=== PATIENT | male | born 1945 | race Caucasian/White ===

== ENCOUNTER 2017-07-10 07:24 | Observation (INO) | payer MEDICARE, BC ==
[~2017-07-10] VITALS: Ht 190.5 cm; Wt 93.4 kg
[~2017-07-10 07:24] MED LIST: AMOXICILLIN500 MG PO; ASPIRIN EC81 MG PO; LIPITOR10 M1 PO; LISINOPRIL20 MG PO; METOPROL TAR25 MG PO
--- NOTE | 2017-07-10 07:32 | NUR ---
AMBULATORY TO ER ROOM 13, TO B ED
[2017-07-10 07:52] LABS: HEMATOCRIT 42.4 % (39.0-50.0); HEMOGLOBIN 14.4 g/dl (14.0-18.0); IMMATURE GRANULOCYTES 0.2 % (0.0-1.0); MEAN CELL VOLUME 90.6 fL CALC (80.0-100.0); MEAN CORPUSCULAR HGB 30.8 pG CALC (26.0-32.0); NEUT# 2.49 thou/uL (1.82-7.42); RED BLOOD COUNT 4.68 mill/uL (4.70-6.10); RED CELL DISTRI WIDTH 12.5 % (11.5-15.5)
--- NOTE | 2017-07-10 08:06 | NUR ---
PT CALM AND QUIET, DENIES PAIN OR SOB.
[2017-07-10 08:08] LABS: ANION GAP 18 (6-22 (CALC)); BUN 16 mg/dL (8-23); BUN/CREATININE RATIO 19 (12-20 (CALC)); CARBON DIOXIDE 26 mmol/l (22-30); CHLORIDE 103 mmol/l (95-108); CREATININE 0.8 mg/dL (0.7-1.3); GFR > 60 ML/MIN (>=60 (CALC)); GFR FOR AFR.AMER. > 60 ML/MIN (>=60 (CALC)); POTASSIUM 3.8 mmol/l (3.5-5.1); SODIUM 143 mmol/l (137-146)
[2017-07-10] MEDS ORDERED: GLUCOPHAGE500 MG PO (08:13)
--- NOTE | 2017-07-10 08:19 | NUR ---
ER AWARE OF BP'S. NO NEW ORDERS RECIEVED
--- NOTE | 2017-07-10 09:17 | NUR ---
ATTEMPTED REPORT TO CLAUDY RAMOS, UNABLE TO TAKE AT THIS TIME, SHE IS TO CALL BACK
[2017-07-10 09:31] LABS: CHOLESTEROL HDL RATIO 2.1 (<4.4 (CALC)); MAGNESIUM 2.3 mg/dL (1.6-2.3)
--- NOTE | 2017-07-10 09:39 | NUR ---
Admission Note Report Given to: CLAUDY RAMOS Transported by: X Wheelchair Stretcher Transported with: X Nurse Transporter Patent IV O2 X School Lunch Manager
--- NOTE | 2017-07-10 09:56 | NUR ---
PT ARRIVED VIA STRETCHER ACCOMAPNIED BY STAFF AND FAMILY IV AND TELE MONITOR IN PLACE.
[2017-07-10 10:05] VITALS: BP 156/76
--- NOTE | 2017-07-10 10:45 | NUR ---
ASSESSMENT IS COMPLETED: IV SITE IS FREE FROM REDNESS OR EDEMA. HR IS REG, AT THIS TIME. ABD IS SOFT WITH ACTIVE BS. TELE MONITOR IN PLACE. BREATH SOUNDS ARE CLEAR, CONTINUE TO OBSERVE AND MONITOR.
--- NOTE | 2017-07-10 12:15 | NUR ---
PT HAS BEEN RELAXING IN BED WITH FAMILY IN THE ROOM. IV SITE IS FREE FROM REDNESS OR EDEMA.
[2017-07-10 15:12] VITALS: BP 110/58
--- NOTE | 2017-07-10 17:00 | NUR ---
PT HAS BEEN AMBULATING IN THE ROOM. IV SITE IS FREE FROM REDNESS OR EDEMA. PT TOOK HOME MEDICATIONS WAS COUNCILED ON TAKING HOME MEDS. TO PLEASE NOT DO THIS FOR FEAR OF OVERDOSING. PT VERBALIZED UNDERSTANDING.
[2017-07-10 19:36] VITALS: BP 124/65
--- NOTE | 2017-07-10 19:40 | NUR ---
REPORT RECIEVED; PT DENIES ANY PAIN OR DISCOMFORT. PT ENCOURAGED TO CALL FOR ASSISTANCE. SAFETY PRECAUTIONS REINFORCED. TELE IN PLACE. FREQUENT ROUNDS MADE. CALL LIGHT WITHIN REACH.
--- NOTE | 2017-07-10 21:40 | NUR ---
PT SITTING ON SIDE OF BED. PT DENIES PAIN OR DISCOMFORT. RESP EVEN AND UNLABORED; NO DISCOMFORT NOTED. TELE IN PLACE. ABD SOFT; ACTIVE BOWEL SOUNDS NOTED. PEDAL PULSES PALPATED BILAT. IV LAC PATENT; FLUSHED WITHOUT DIFFICULTY. SAFETY PRECAUTIONS REINFORCED. CALL LIGHT WITHIN REACH.
--- NOTE | 2017-07-11 00:20 | NUR ---
RESP EVEN AND UNLABORED. TELE IN PLACE. CALL LIGHT WITHIN REACH.
[2017-07-11 00:29] VITALS: BP 149/81
[2017-07-11 04:11] VITALS: BP 127/74
--- NOTE | 2017-07-11 04:15 | NUR ---
RESP EVEN AND UNLABORED; NO DISCOMFORT NOTED. TELE IN PLACE. ASSESSMENT UNCHANGED. CALL LIGHT WITHIN REACH.
[2017-07-11 05:42] LABS: ANION GAP 16 (6-22 (CALC)); BUN 18 mg/dL (8-23); BUN/CREATININE RATIO 21 (12-20 (CALC)); CARBON DIOXIDE 27 mmol/l (22-30); CHLORIDE 104 mmol/l (95-108); CREATININE 0.9 mg/dL (0.7-1.3); GFR > 60 ML/MIN (>=60 (CALC)); GFR FOR AFR.AMER. > 60 ML/MIN (>=60 (CALC)); POTASSIUM 4.3 mmol/l (3.5-5.1); SODIUM 143 mmol/l (137-146)
[2017-07-11 05:43] LABS: HEMATOCRIT 40.3 % (39.0-50.0); HEMOGLOBIN 13.7 g/dl (14.0-18.0); MEAN CELL VOLUME 91.2 fL CALC (80.0-100.0); RED BLOOD COUNT 4.42 mill/uL (4.70-6.10); RED CELL DISTRI WIDTH 12.5 % (11.5-15.5)
--- NOTE | 2017-07-11 07:30 | NUR ---
BEDSIDE REPORT RECEIVED FROM HOLLY HUERTA. PT SITTING IN CHAIR AT BEDSIDE. DENIES PAIN, REPORTING OF CONCERNS ENCOURAGED. PLAN OF CARE DISCUSSED. CALL LIGHT REVIEWED AND IN REACH. PT STATES UNDERSTANDING.
[2017-07-11 08:10] VITALS: BP 108/65
--- NOTE | 2017-07-11 09:30 | NUR ---
PT REPORTS PALPITATIONS, STATES THEY HAVE BEEN COMING AND GOING SINCE PRIOR TO ADMISSION. NO PAIN. NO OTHER SYMPTOMS RELATED TO PALPITAIONS. NO SOB.
[2017-07-11 11:11] VITALS: BP 117/68
--- NOTE | 2017-07-11 13:23 | NUR ---
DR. KENNEY IN TO SEE PT.
--- NOTE | 2017-07-11 14:56 | NUR ---
Discharge instructions given. Patient verbalizes understanding of same. Discharged in stable condition via Ambulatory to Home with spouse. All belongings sent with pt.
== END 2017-07-11 14:48 | disposition home or self-care (01) ==
LOC: ED 07:24 → ED-I 08:20 → ED 08:30 → MS2 08:31
PROVIDERS: Family Medicine; Nurse Practitioner Family; ADMIT Internal Medicine; ATTEND Internal Medicine
DX: I49.1 Atrial premature depolarization (principal); I48.0 Paroxysmal atrial fibrillation; I10 Essential (primary) hypertension; I25.10 Atherosclerotic heart disease of native coronary artery without angina pectoris; E78.5 Hyperlipidemia, unspecified; K29.70 Gastritis, unspecified, without bleeding; K44.9 Diaphragmatic hernia without obstruction or gangrene; Z85.46 Personal history of malignant neoplasm of prostate; Z82.49 Family history of ischemic heart disease and other diseases of the circulatory system

== ENCOUNTER → 2018-01-15 | Outpatient (REF) | payer MEDICARE, BC ==
[~2018-01-15] MED LIST changes: +GLUCOPHAGE500 MG PO
== END | disposition home or self-care (01) ==
LOC: CT 08:28
PROVIDERS: ATTEND Neurological Surgery
DX: C61 Malignant neoplasm of prostate (principal)
CPT/HCPCS: Q9967

== ENCOUNTER 2019-04-16 | Emergency (ER) | payer MEDICARE, BC ==
[2019-04-16] MEDS ORDERED: DOCUSATE CAL240 MG PO (15:56)
[2019-04-16] MEDS ORDERED: MIRALAX3350 NF PO (15:57)
[2019-04-16] MEDS ORDERED: CASODEX50 MG PO (15:58)
[2019-04-16] MEDS ORDERED: GABAPENTIN100 MG PO (15:59)
[2019-04-16] MEDS ORDERED: LUPRON DEPOT30 MG IM (16:01)
[2019-04-16] MEDS ORDERED: LASIX20 MG PO (16:02)
== END 2019-04-16 19:13 | disposition home or self-care (01) ==
DX: M79.661 Pain in right lower leg (principal); I10 Essential (primary) hypertension; I48.91 Unspecified atrial fibrillation; I25.10 Atherosclerotic heart disease of native coronary artery without angina pectoris; Z79.84 Long term (current) use of oral hypoglycemic drugs

== ENCOUNTER 2019-07-18 | Emergency (ER) | payer MEDICARE, BC ==
[~2019-07-18] MED LIST changes: +CASODEX50 MG PO; +DOCUSATE CAL240 MG PO; +GABAPENTIN100 MG PO; +LASIX20 MG PO; +LUPRON DEPOT30 MG IM; +MIRALAX3350 NF PO
[2019-07-18] MEDS ORDERED: TRAMADOL HYDROC50 MG PO (02:29)
[2019-07-18] MEDS ORDERED: FLEXERIL PO (02:29)
== END 2019-07-18 02:52 | disposition home or self-care (01) ==
DX: S43.402A Unspecified sprain of left shoulder joint, initial encounter (principal); E11.9 Type 2 diabetes mellitus without complications; I10 Essential (primary) hypertension; I48.91 Unspecified atrial fibrillation; I25.10 Atherosclerotic heart disease of native coronary artery without angina pectoris; W18.39XA Other fall on same level, initial encounter; Y93.89 Activity, other specified; Y92.009 Unspecified place in unspecified non-institutional (private) residence as the place of occurrence of the external cause; Z79.84 Long term (current) use of oral hypoglycemic drugs

== ENCOUNTER 2019-10-08 14:37 | Emergency (ER) | payer MEDICARE, BC ==
[~2019-10-08] VITALS: Ht 190.5 cm; Wt 110.0 kg
[~2019-10-08 14:37] MED LIST changes: +FLEXERIL PO; +TRAMADOL HYDROC50 MG PO
[2019-10-08 15:14] LABS: HEMATOCRIT 38.7 % (39.0-50.0); HEMOGLOBIN 12.9 g/dl (14.0-18.0); IMMATURE GRANULOCYTES 0.6 % (0.0-5.0); MEAN CELL VOLUME 89.2 fL CALC (80.0-100.0); MEAN CORPUSCULAR HGB 29.7 pG CALC (26.0-32.0); MEAN CORPUSCULAR HGB CONC 33.3 g/dL CAL (32.0-36.0); NEUT# 5.65 thou/uL (1.82-7.42); RED BLOOD COUNT 4.34 mill/uL (4.70-6.10)
[2019-10-08 15:21] LABS: ALBUMIN 4.7 g/dL (3.2-5.0); ALKALINE PHOSPHATASE 63 u/l (38-126); ANION GAP 10 (6-22 (CALC)); BILIRUBIN, TOTAL 0.7 mg/dL (0.0-1.4); BUN 27 mg/dL (8-23); BUN/CREATININE RATIO 36 (12-20 (CALC)); CARBON DIOXIDE 29 mmol/l (22-30); CHLORIDE 102 mmol/l (95-108); CREATININE 0.8 mg/dL (0.7-1.3); GFR > 60 ML/MIN (>=60 (CALC)); GFR FOR AFR.AMER. > 60 ML/MIN (>=60 (CALC)); POTASSIUM 3.8 mmol/l (3.5-5.1); PROTHROMBIN TIME 10.6 SECONDS (9.0-12.5); SGOT/AST 44 u/l (19-48); SODIUM 137 mmol/l (137-146); TOTAL PROTEIN 7.7 g/dL (6.3-8.2)
[2019-10-08 20:25] VITALS: BP 170/94
== END 2019-10-08 20:55 | disposition home or self-care (01) ==
LOC: ED 14:37
PROVIDERS: Family Medicine
DX: R07.9 Chest pain, unspecified (principal); E11.9 Type 2 diabetes mellitus without complications; I10 Essential (primary) hypertension; I48.91 Unspecified atrial fibrillation; I25.10 Atherosclerotic heart disease of native coronary artery without angina pectoris; Z79.84 Long term (current) use of oral hypoglycemic drugs

== ENCOUNTER 2020-05-18 15:12 | Emergency (ER) | payer MEDICARE, BC ==
[~2020-05-18] VITALS: Ht 190.5 cm; Wt 100.0 kg
[2020-05-18 16:38] LABS: HEMATOCRIT 38.5 % (39.0-50.0); HEMOGLOBIN 12.4 g/dl (14.0-18.0); IMMATURE GRANULOCYTES 0.4 % (0.0-5.0); MEAN CELL VOLUME 91.4 fL CALC (80.0-100.0); MEAN CORPUSCULAR HGB 29.5 pG CALC (26.0-32.0); MEAN CORPUSCULAR HGB CONC 32.2 g/dL CAL (32.0-36.0); NEUT# 3.35 thou/uL (1.82-7.42); RED BLOOD COUNT 4.21 mill/uL (4.70-6.10); RED CELL DISTRI WIDTH 13.2 % (11.5-15.5)
[2020-05-18] MEDS ORDERED: ELIQUIS STARTER5 MG PO (16:44)
[2020-05-18 16:51] LABS: ALBUMIN 4.5 g/dL (3.2-5.0); ANION GAP 9 (6-22 (CALC)); BUN 26 mg/dL (8-23); BUN/CREATININE RATIO 36 (12-20 (CALC)); CARBON DIOXIDE 31 mmol/l (22-30); CHLORIDE 102 mmol/l (95-108); CREATININE 0.7 mg/dL (0.7-1.3); GFR > 60 ML/MIN (>=60 (CALC)); GFR FOR AFR.AMER. > 60 ML/MIN (>=60 (CALC)); SGOT/AST 25 u/l (19-48); SODIUM 138 mmol/l (137-146); TOTAL PROTEIN 7.1 g/dL (6.3-8.2)
[2020-05-18 16:58] LABS: ALKALINE PHOSPHATASE 89 u/l (38-126); BILIRUBIN, TOTAL 0.4 mg/dL (0.0-1.4)
[2020-05-18 16:59] LABS: PROTHROMBIN TIME 10.2 SECONDS (9.0-12.5)
[2020-05-18 17:51] VITALS: BP 183/91
== END 2020-05-18 17:51 | disposition home or self-care (01) ==
LOC: ED 15:12
PROVIDERS: Student in an Organized Health Care Education/Training Program
DX: I82.431 Acute embolism and thrombosis of right popliteal vein (principal); I10 Essential (primary) hypertension; E11.9 Type 2 diabetes mellitus without complications; I48.91 Unspecified atrial fibrillation; I25.10 Atherosclerotic heart disease of native coronary artery without angina pectoris; E78.00 Pure hypercholesterolemia, unspecified; Z79.82 Long term (current) use of aspirin; Z85.46 Personal history of malignant neoplasm of prostate; R60.0 Localized edema; I73.9 Peripheral vascular disease, unspecified; M79.671 Pain in right foot

== ENCOUNTER 2024-05-05 13:31 | Emergency (ER) | payer MEDICARE, BC ==
[~2024-05-05] VITALS: Ht 188 cm; Wt 95.0 kg
[~2024-05-05 13:31] MED LIST changes: +ELIQUIS STARTER5 MG PO; +KEFLEX500 MG PO
[2024-05-05 13:44] VITALS: BP 156/74
[2024-05-05 14:00] VITALS: BP 156/84
[2024-05-05 14:30] VITALS: BP 143/79
[2024-05-05] MEDS ORDERED: BENZONATATE 200 MG/CAP PO ONE (14:40)
[2024-05-05] MEDS ORDERED: DOXYCYCLINE HYCLATE 100 MG/CAP PO ONE (14:40)
[2024-05-05 14:45] VITALS: BP 141/87
[2024-05-05] MEDS ORDERED: BENZONATATE200 MG PO (14:58)
[2024-05-05] MEDS ORDERED: VIBRAMYCIN100 M2 PO (14:58)
[2024-05-05 15:09] VITALS: BP 141/87
== END 2024-05-05 15:56 | disposition home or self-care (01) ==
LOC: ED 13:31
DX: J18.9 Pneumonia, unspecified organism (principal); I10 Essential (primary) hypertension; E78.5 Hyperlipidemia, unspecified; E11.9 Type 2 diabetes mellitus without complications; I48.91 Unspecified atrial fibrillation; I25.10 Atherosclerotic heart disease of native coronary artery without angina pectoris; Z79.84 Long term (current) use of oral hypoglycemic drugs; Z20.822 Contact with and (suspected) exposure to COVID-19

== ENCOUNTER 2024-06-16 06:28 | Emergency (ER) | payer MEDICARE, BC ==
[~2024-06-16] VITALS: Ht 188 cm; Wt 94.3 kg
[~2024-06-16 06:28] MED LIST changes: +BENZONATATE200 MG PO; +VIBRAMYCIN100 M2 PO
[2024-06-16 06:37] VITALS: BP 135/91
[2024-06-16] MEDS ORDERED: SODIUM CHLORIDE 0.9% 1,000 ML IV ONE (06:40)
[2024-06-16 06:49] LABS: BASO% 0.7 % (0-3); HEMATOCRIT 34.7 % (39.0-50.0); IMMATURE GRANULOCYTES 0.5 % (0.0-5.0); LYMPH% 8.2 % (15-41); MEAN CELL VOLUME 99.1 fL CALC (80.0-100.0); MEAN CORPUSCULAR HGB 31.4 pG CALC (26.0-32.0); MEAN CORPUSCULAR HGB CONC 31.7 g/dL CAL (32.0-36.0); MONO% 11.8 % (2-13); NEUT# 3.48 thou/uL (1.82-7.42); NEUT% 78.8 % (42-76); RED BLOOD COUNT 3.5 mill/uL (4.70-6.10); RED CELL DISTRI WIDTH 14.7 % (11.5-15.5)
[2024-06-16] MEDS ORDERED: NORMODYNE/TRAN100 MG PO (06:49)
[2024-06-16 06:59] LABS: ALBUMIN 4.2 g/dL (3.2-5.0); ALKALINE PHOSPHATASE 101 u/l (38-126); ANION GAP 12 (6-22 (CALC)); BILIRUBIN, TOTAL 0.6 mg/dL (0.2-1.3); BUN 24 mg/dL (8-23); BUN/CREATININE RATIO 36 (12-20 (CALC)); CARBON DIOXIDE 28 mmol/l (22-30); CHLORIDE 104 mmol/l (95-108); CREATININE 0.7 mg/dL (0.7-1.3); ESTIMATED GFR 93 ML/MIN (>=90 (CALC)); POTASSIUM 4.1 mmol/l (3.5-5.1); SGOT/AST 29 u/l (19-48); SODIUM 140 mmol/l (137-146)
[2024-06-16 07:00] VITALS: BP 142/82
[2024-06-16 07:10] LABS: ACT PARTIAL THROMBO TIME 24.2 SECONDS (20.0-32.5); D-DIMER 1.33 mg/L (0.19-0.60); INTERNATIONAL NORMALIZED RATIO 0.9 RATIO (0.7-1.3)
[2024-06-16 08:39] VITALS: BP 161/83
[2024-06-16 08:40] LABS: URINE BILIRUBIN - DIPSTICK Negative (NEGATIVE); URINE BLOOD DIPSTICK Negative (NEGATIVE); URINE GLUCOSE - DIPSTICK Negative (NEGATIVE); URINE KETONE Negative (NEGATIVE); URINE LEUK ESTERASE Negative (NEGATIVE); URINE NITRITE - DIPSTICK Negative (Negative); URINE PROTEIN - DIPSTICK Negative (NEG-TRACE)
[2024-06-16 08:50] LABS: URINE COLOR Yellow
[2024-06-16] MEDS ORDERED: AMOX/K CLAV875 M1 PO (08:53)
[2024-06-16] MEDS ORDERED: ZPAK PO (08:53)
[2024-06-16 09:01] VITALS: BP 169/83
[2024-06-16 09:12] VITALS: BP 169/83
== END 2024-06-16 09:21 | disposition home or self-care (01) ==
LOC: ED 06:28
PROVIDERS: Family Medicine
DX: R00.0 Tachycardia, unspecified (principal); R91.8 Other nonspecific abnormal finding of lung field; I10 Essential (primary) hypertension; E11.42 Type 2 diabetes mellitus with diabetic polyneuropathy; I48.91 Unspecified atrial fibrillation; E78.00 Pure hypercholesterolemia, unspecified; I25.10 Atherosclerotic heart disease of native coronary artery without angina pectoris; M21.371 Foot drop, right foot; Z85.46 Personal history of malignant neoplasm of prostate; Z79.84 Long term (current) use of oral hypoglycemic drugs
CPT/HCPCS: Q9967